=== PATIENT | male | born 1960 | race African-American/Black ===

== ENCOUNTER 2022-06-14 19:13 | Emergency (ER) | payer BC, SELFPAY ==
[2022-06-14] MEDS ORDERED: diphenhydrAMINE 50 MG/ML VIAL ONE (19:40)
[2022-06-14] MEDS ORDERED: Ondansetron PF 4 MG/2 ML Vial ONE (19:40)
[2022-06-14] MEDS ORDERED: Boostrix 0.5 ML (Tdap) VIAL (>/=7 yrs of age) ONE (19:40)
[2022-06-14] MEDS ORDERED: Morphine 4 MG/ML VIAL ONE (19:40)
[2022-06-14] MEDS ORDERED: Sodium Chloride 0.9% 1,000 ML ONE (19:40)
[2022-06-14] MEDS ORDERED: ANTIVENIN,CROTALIDAE (ANAVIP) 1 EACH VIAL ONE ×2 (19:41)
[2022-06-14] MEDS ORDERED: Atropine Sulfate 1 mg/10 ml Syringe ONE (20:05)
[2022-06-14 20:13] LABS: INR-International Normal Ratio 1.1; Prothrombin Time 14.4 sec (12.0-14.7)
[2022-06-14 20:14] LABS: PTT 30.3 sec (22.9-36.1)
[2022-06-14 20:20] LABS: ALT (SGPT) 27 U/L (8-55); AST (SGOT) 24 U/L (5-34); Albumin 4.3 g/dL (3.4-4.8); Alkaline Phosphatase 53 U/L (40-110); Anion Gap 15 mmol/L (10-20); BUN (Urea Nitrogen) 23 mg/dL (8.4-25.7); Bilirubin, Total 0.7 mg/dL (0.2-1.2); Calc. Creatinine Clearance 0 mL/min (70-130); Calcium 9.4 mg/dL (7.8-10.44); Carbon Dioxide 21 mmol/L (23-31); Chloride 108 mmol/L (98-107); Estimated GFR 57; Globulin 2.8 g/dL (2.4-3.5); Glucose 93 mg/dL (80-115); Potassium 3.7 mmol/L (3.5-5.1); Protein, Total 7.1 g/dL (5.8-8.1); Sodium 140 mmol/L (136-145)
[2022-06-14 20:24] LABS: CK (CPK) 551 U/L (30-200); CRP (Inflammatory) Less than 0.50 mg/dL (= or < 0.5)
[2022-06-14 20:30] LABS: #Basophils 0.1 thou/uL (0.0-0.2); #Eosinphils 0.1 thou/uL (0.0-0.7); #Lymphocytes 0.8 thou/uL (1.20-3.40); #Monocytes 0.8 thou/uL (0.11-0.59); #Neutrophils 6.1 thou/uL (1.40-6.50); %Basophils 0.7 % (0.0-1.0); %Eosinophils 1.6 % (0.0-10.0); %Lymphocytes 9.5 % (21.0-51.0); %Monocytes 10.1 % (0.0-10.0); Hemoglobin 12.9 g/dL (14.0-18.0); Mean Corpuscular HGB CONC 32.7 g/dL (32.0-36.0); Mean Corpuscular Hemoglobin 30.7 pg (27.0-31.0); Mean Platelet Volume 13.3 fL (7.4-10.4); Platelet Count 144 10x3/uL (130-400); Platelet Morphology Comment Appears Adequate; RBC Distribution Width 14.3 % (11.5-14.5); RBC Morphology Normal; Red Blood Cell (RBC) Count 4.21 mill/uL (4.70-6.10); White Blood Cell (WBC) Count 7.9 10x3/uL (4.8-10.8)
== END 2022-06-14 21:12 | disposition short-term general hospital (02) ==
LOC: MADERS 19:13
DX: T63.091A Toxic effect of venom of other snake, accidental (unintentional), initial encounter (principal); E78.5 Hyperlipidemia, unspecified; I10 Essential (primary) hypertension; Z79.899 Other long term (current) drug therapy
CPT/HCPCS: 36415; 80053; 82550; 85025; 85384; 85610; 85730; 86140; 90471; 90715; 96365; 96375; J0461; J0841; J1200; J2270; J2405; J7050